=== PATIENT | female | born 1990 | race Caucasian/White ===

== ENCOUNTER 2016-05-29 08:38 | Emergency (ER) | payer OTHER ==
[~2016-05-29] VITALS: Ht 157.4 cm; Wt 90.7 kg
[~2016-05-29 08:38] MED LIST: AMOXICILLIN500 M2 PO; AMOXICILLIN500 MG PO; AMOXIL500 MG PO; ANAPROX DS550 MG PO; ATARAX25 MG PO; ATIVAN1 MG PO; AUGMENTIN 875 M1 TA1 PO; AUGMENTIN 875875 MG PO; BACTRIM DS 8001 TA1 PO; BENADRYL25 M1 PO; CIPRO500 MG PO; CIPROFLOXACIN500 MG PO; CLINDAMYCIN HC300 MG PO; CLINDAMYCIN150 MG PO; ELIMITE 5%60 GM T; HYDROCODONE BIT1 T11 PO; KEFLEX500 MG PO; LEVAQUIN750 MG PO; MACROBID100 M1 PO; MACROBID100 MG PO; MOTRIN800 MG PO; NAPROSYN500 MG PO; NKHM; NORCO 5-325 TA1 EACH PO; PENICILLIN VK500 MG PO; PEPCID20 MG PO; PHENERGAN12.5 M1 PO; PHENERGAN25 M1 PO; PREDNICOT20 MG PO; PRENATAL1 TA1 PO; PRENATAL1 TA3 PO; PYRIDIUM200 MG PO; Peridex 473 ML473 ML PO; ROBAXIN750 MG PO; SEPTRA DS 800 M1 TAB PO; TRAMADOL HCL50 MG PO; ULTRAM50 MG PO; VICODIN 5/500 505 MG PO; VISTARIL25 M2 PO; ZANTAC150 MG PO; ZITHROMAX Z PA250 MG PO; ZITHROMAX250 MG PO; ZOFRAN4 MG PO; Zofran4 MG PO
[2016-05-29] MEDS ORDERED: AUGMENTIN 875875 MG PO (09:05)
[2016-05-29] MEDS ORDERED: Motrin,Rufen800 MG PO (09:05)
== END 2016-05-29 09:10 | disposition home or self-care (01) ==
LOC: ED 08:38
DX: K08.89 Other specified disorders of teeth and supporting structures (principal); R51 Headache; F17.200 Nicotine dependence, unspecified, uncomplicated

== ENCOUNTER 2016-09-13 18:59 | Emergency (ER) | payer OTHER ==
[~2016-09-13] VITALS: Wt 97.5 kg
[~2016-09-13 18:59] MED LIST changes: +Motrin,Rufen800 MG PO
== END 2016-09-13 20:07 | disposition home or self-care (01) ==
LOC: ED 18:59
DX: O99.612 Diseases of the digestive system complicating pregnancy, second trimester (principal); K08.89 Other specified disorders of teeth and supporting structures; O99.332 Smoking (tobacco) complicating pregnancy, second trimester; Z98.890 Other specified postprocedural states; Z90.49 Acquired absence of other specified parts of digestive tract; Z3A.18 18 weeks gestation of pregnancy

== ENCOUNTER 2017-04-27 21:19 | Emergency (ER) | payer OTHER ==
[~2017-04-27] VITALS: Ht 157.4 cm; Wt 81.6 kg
[2017-04-27 22:16] LABS: BASO % 0.2 % (0.0-1.0); EOS # 0.2 10*3/uL (0.0-0.4); EOS % 2.7 % (1.0-4.0); HEMATOCRIT 39.6 % (37.0-47.0); HEMOGLOBIN 12.7 g/dl (12.0-16.0); LYMPH # 2.5 10*3/uL (1.3-4.4); LYMPH % 30.3 % (27.0-41.0); MEAN CORPUSCULAR HGB 27.9 pg (27.0-31.0); MEAN CORPUSCULAR HGB CONC 32.1 g/dl (33.0-37.0); MEAN PLATELET VOLUME 10.7 fl (9.6-12.3); MONO # 0.4 10*3/uL (0.1-1.0); MONO % 5.4 % (3.0-9.0); NEUT % 61.3 % (47.0-73.0); PLATELET COUNT AUTOMATED 277 10*3/uL (130-400); RED BLOOD COUNT 4.55 10*6/uL (4.10-5.10); RED CELL DISTRI WIDTH 13.7 % (0-14.5); WHITE BLOOD COUNT 8.1 10*3/uL (4.8-10.8)
[2017-04-27 22:30] LABS: ALBUMIN 3.5 gm/dl (3.1-4.5); ALKALINE PHOSPHATASE 101 U/L (45-117); BUN 13 mg/dl (7-24); CHLORIDE 109 mmol/L (98-107); CREATININE 0.75 mg/dL (0.55-1.02); POTASSIUM 4.2 mmol/L (3.5-5.1); SGOT/AST 4 IU/L (3-35); SGPT/ALT 12 U/L (12-78); SODIUM 140 mmol/L (136-145); TOTAL PROTEIN 7.6 gm/dL (6.4-8.2)
== END 2017-04-27 23:20 | disposition home or self-care (01) ==
LOC: ED 21:19
PROVIDERS: Student in an Organized Health Care Education/Training Program
DX: K59.00 Constipation, unspecified (principal); F17.200 Nicotine dependence, unspecified, uncomplicated

== ENCOUNTER 2018-09-11 11:31 | Emergency (ER) | payer OTHER ==
[~2018-09-11] VITALS: Ht 157.4 cm; Wt 77.1 kg
== END 2018-09-11 14:18 | disposition home or self-care (01) ==
LOC: ED 11:31
DX: K59.00 Constipation, unspecified (principal); Z90.49 Acquired absence of other specified parts of digestive tract

== ENCOUNTER → 2022-06-08 | Outpatient (CLI) | payer OTHER ==
[2022-06-08 17:09] LABS: BASO % 0.3 % (0.0-1.0); EOS # 0.2 10*3/uL (0.0-0.4); EOS % 2.2 % (1.0-4.0); LYMPH # 1.7 10*3/uL (1.3-4.4); LYMPH % 23.7 % (27.0-41.0); MEAN CELL VOLUME 91.9 fl (81.0-99.0); MEAN CORPUSCULAR HGB CONC 32.6 g/dl (33.0-37.0); MEAN PLATELET VOLUME 9.8 fl (9.6-12.3); MONO # 0.5 10*3/uL (0.1-1.0); MONO % 7.1 % (3.0-9.0); NEUT # 4.8 10*3/uL (2.3-7.9); NEUT % 66.4 % (47.0-73.0); PLATELET COUNT AUTOMATED 264 10*3/uL (130-400); RED BLOOD COUNT 4.57 10*6/uL (4.10-5.10); WHITE BLOOD COUNT 7.2 10*3/uL (4.8-10.8)
[2022-06-08 17:52] LABS: ALKALINE PHOSPHATASE 101 U/L (46-116); BUN 7 mg/dl (9-23); CHLORIDE 107 mmol/L (98-107); POTASSIUM 4.4 mmol/L (3.4-5.1); SGPT/ALT 25 U/L (10-49); TOTAL PROTEIN 7.1 gm/dL (6.0-8.0)
[2022-06-09 08:08] LABS: HBSAG Negative (Negative); HEP B CORE AB, IGM Negative (Negative); HEPATITIS C ANTIBODY <0.1 (0.0-0.9)
== END | disposition home or self-care (01) ==
LOC: LAB 16:40
PROVIDERS: ATTEND Nurse Practitioner Family
DX: Z77.21 Contact with and (suspected) exposure to potentially hazardous body fluids (principal)

== ENCOUNTER → 2025-02-24 | Day surgery (SDC) | payer OTHER ==
[~2025-02-24] VITALS: Ht 157 cm; Wt 114.3 kg
[~2025-02-24] MED LIST changes: +ACETAMINOPHEN 100 ML IV ONE; +Bacitracin Zinc/Neomycin/Pol 0.9 GM PACKET T ONE; +Bupivacaine Hydrochloride/Ep2 30 ML VIAL ONE; +Dexamethasone Sodium Phospha 4 MG/ML VIAL IV ONE; +Gelatin Sponge 1 EACH SPON T ONE; +Lactated Ringer's Solution 1,000 ML IV ONE; +Lidocaine Hydrochloride 5 ML VIAL IV ONE; +Midazolam Hydrochloride 2 MG/2 ML VIAL IV ONE; +Ondansetron Hydrochloride 4 MG/2 ML VIAL IV ONE; +PROPOFOL 200 MG/20 ML VIAL IV ONE; +ROCURONIUM BROMIDE 50 MG/5 ML SYRINGE IV ONE; +SEVOFLURANE 250 ML BOT INH ONE; +SODIUM CHLORIDE 0.9% 100 ML IV ONE; +SUBOXONE 8 MG-1 EACH BC; +SUGAMMADEX SODIUM 200 MG/2 ML VIAL IV ONE
[2025-02-24 06:58] VITALS: BP 121/72
[2025-02-24 08:57] VITALS: BP 111/58
[2025-02-24 09:12] VITALS: BP 123/81
[2025-02-24 09:27] VITALS: BP 109/59
[2025-02-24 09:42] VITALS: BP 101/61
[2025-02-24 09:55] VITALS: BP 110/64
== END | disposition home or self-care (01) ==
LOC: SDC 02-23 08:45
PROVIDERS: ATTEND Dentist General Practice
DX: K08.89 Other specified disorders of teeth and supporting structures (principal); K02.9 Dental caries, unspecified; F41.9 Anxiety disorder, unspecified; J40 Bronchitis, not specified as acute or chronic; F17.200 Nicotine dependence, unspecified, uncomplicated; F11.10 Opioid abuse, uncomplicated; Z98.890 Other specified postprocedural states; Z98.891 History of uterine scar from previous surgery; Z90.49 Acquired absence of other specified parts of digestive tract; Z79.899 Other long term (current) drug therapy